=== PATIENT | female | born 1970 | race Caucasian/White ===

== ENCOUNTER 2024-05-15 02:58 | Emergency (ER) | payer MEDICARE, OTHER ==
[2024-05-15 03:29] LABS: BASOPHILS ABSOLUTE AUTO 0.07 K/uL (0.00-0.10); BASOPHILS PERCENT AUTO 0.8 % (0.1-1.3); HEMATOCRIT 35.5 % (34.3-46.0); HEMOGLOBIN 11.5 g/dL (11.2-15.5); IMMATURE GRAN ABSOLUTE AUTO 0.03 K/uL (0.00-0.23); IMMATURE GRAN PERCENT AUTO 0.4 % (0.0-0.7); LYMPHOCYTES PERCENT AUTO 20.4 % (11.4-47.7); MEAN CORPUSCULAR HGB CONC 32.4 g/dL (31.6-35.5); MEAN CORPUSCULAR VOLUME 89.6 fL (81.4-99.0); MONOCYTES ABSOLUTE AUTO 0.62 K/uL (0.20-0.90); MONOCYTES PERCENT AUTO 7.5 % (3.3-12.6); NEUTROPHILS PERCENT AUTO 70.9 % (40.0-78.1); PLATELET COUNT,PLT 361 K/uL (130-375); RED BLOOD CELL COUNT 3.96 M/uL (3.77-5.24); WHITE BLOOD CELL COUNT,WBC 8.3 K/uL (3.2-11.0)
[2024-05-15] MEDS: Ondansetron 4 MG/2 ML SDV IVPUSH ONE (03:32)
[2024-05-15] MEDS: HYDROmorphone 1 MG/ML Syringe IVPUSH ONE (03:32)
[2024-05-15 03:41] LABS: ANION GAP 14.4 mmol/L (5.0-14.0); CALCIUM 9.6 mg/dL (8.5-10.1); CREATININE 1.4 mg/dL (0.6-1.0); EST CRCL DRUG DOSING (CG) 53.01 mL/min; POTASSIUM,K 3.4 mmol/L (3.6-5.2); TROPONIN I HIGH SENSITIVITY 15.5 pg/mL (<=60.3)
[2024-05-15] MEDS: HYDROmorphone 1 MG/ML Syringe IM ONE (03:46)
[2024-05-15] MEDS: Ondansetron 4 MG Tab.DIS PO ONE (03:46)
[2024-05-15] MEDS: Sodium Chloride 0.9% 1,000 ML IV SCH (04:15)
[2024-05-15] MEDS: Sodium Chloride 0.9% 100 ML IV SCH (04:53)
[2024-05-15] MEDS: Iopamidol 755 Mg/ML 100 ML Bottle IV SCH (04:53)
== END 2024-05-15 12:27 | disposition home or self-care (01) ==
LOC: JP.ED 02:58
DX: R07.89 Other chest pain (principal); F17.210 Nicotine dependence, cigarettes, uncomplicated; I25.10 Atherosclerotic heart disease of native coronary artery without angina pectoris; I25.2 Old myocardial infarction; E78.00 Pure hypercholesterolemia, unspecified; I12.9 Hypertensive chronic kidney disease with stage 1 through stage 4 chronic kidney disease, or unspecified chronic kidney disease; N18.30 Chronic kidney disease, stage 3 unspecified; Z86.73 Personal history of transient ischemic attack (TIA), and cerebral infarction without residual deficits; Z79.01 Long term (current) use of anticoagulants; Z79.899 Other long term (current) drug therapy; Z88.8 Allergy status to other drugs, medicaments and biological substances; Z88.1 Allergy status to other antibiotic agents; Z91.018 Allergy to other foods
CPT/HCPCS: 36415; 71275; 80048; 82550; 84484; 85025; 96361; 96374; 96375; 99283; 99285; J1170; J2405; J3490; J7030; Q9967